=== PATIENT | male | born 1990 | race American Indian/Alaskan Native ===

== ENCOUNTER 2016-12-01 09:54 | Inpatient (IN) ==
[2016-12-01] MEDS ORDERED: diphenhydrAMINE 50 MG/ML VIAL IV ONE (10:17)
[2016-12-01] MEDS ORDERED: KETOROLAC 60 MG/2 ML VIAL IM ONE (10:17)
[2016-12-01] MEDS ORDERED: PROMETHAZINE 50 MG/ML AMPUL IM ONE (10:17)
[2016-12-01] MEDS ORDERED: DEXAMETHASONE 10 MG/ML VIAL IM ONE (10:17)
--- NOTE | 2016-12-01 10:22 | Emergency Department Note ---
Headache HPI - General Chief Complaint: Headache Stated Complaint: headache x2 days Time Seen by Provider: 12/01/16 10:01 Source: patient Mode of arrival: ambulatory Limitations: no limitations - History of Present Illness HPI Narrative: 26-year-old male presents with frontal headache 2 days. He states that this started 2 days ago and has continued to get worse. States his pain is about a 6 out of 10. He is sensitive to light and nauseated but no vomiting. He denies history of migraines. He states it is just bad enough that he can ignore it. He was seen at [facility] today and given a shot of Imitrex. He states that that did not help much. Was about an hour ago when he had the injection. He has a history of A. fib and his last episode was last fall. He takes metoprolol as needed when he is in it. He has not had any episodes recently. His children have been sick but he has not had any cold symptoms. He states his pain is mainly frontal but sometimes he has pain in the back of his head. He has not had an injury. He denies any weakness or focal deficits. He finds it somewhat difficult to think clearly. He states this is the worst headache of his life. He denies family history of aneurysms and thinks his mother may have had migraines. He was referred by [facility] for this Location: Right, Frontal, Temporal Improves with: nothing Worsens with: exertion, light Associated symptoms: Reports: nausea, photophobia - Related Data Home Medications Medication Instructions Recorded Confirmed Metoprolol Tartrate 50 mg PO PRN PRN 05/13/16 12/01/16 Allergies Allergy/AdvReac Type Severity Reaction Status Date / Time amphetamine [From Adderall] Allergy Unknown Palpitation Verified 05/13/16 22:28 s dextroamphetamine Allergy Unknown Palpitation Verified 05/13/16 22:28 [From Adderall] s Review of Systems All systems ED: reviewed and negative except as stated. Headache PMH - Past Medical History Medical history: Reports: atrial fibrillation (paroxysmal) Surgical history ED: Reports: non-contributory Psychiatric history: Reports: ADD Family history: Reports: other (possible migraines on mother's side) - Social History smoking status: Smokeless tobacco Physical Exam - General Limitations: no limitations General appearance: alert, in no apparent distress - Head Head exam: atraumatic - Eye Eye exam: Present: normal appearance, PERRL, EOMI. Absent: conjunctival injection - Neck Neck exam: Present: normal inspection, full ROM, trachea midline. Absent: tenderness, meningismus, lymphadenopathy - Chest Chest inspection: Present: normal inspection, symmetric chest wall rise - Respiratory Respiratory exam: Present: normal lung sounds bilaterally - Cardiovascular Cardiovascular exam: Present: regular rate (a-fib not appreciated at this time, no symptoms), normal heart sounds - Abdominal Exam Abdominal exam: Present: soft, normal bowel sounds. Absent: tenderness - Extremities Exam Extremities exam: Present: normal inspection, full ROM - Neurological Exam Neurological exam: Present: alert, oriented X3, CN II-XII intact, normal gait. Absent: motor sensory deficit - Psychiatric Psychiatric exam: Present: normal affect, normal mood - Skin Skin exam: Present: warm, dry, intact Course Course Narrative: Dr. Smith consulted and will admit for Meningitis Vital Signs Temperature 97.6 F 12/01/16 09:56 Pulse Rate 64 12/01/16 09:56 Respiratory Rate 18 12/01/16 09:56 Blood Pressure 124/81 12/01/16 09:56 Pulse Oximetry (%) 95 12/01/16 09:56 Temperature 96.0 F L 12/01/16 18:01 Pulse Rate 77 12/01/16 17:25 Respiratory Rate 20 12/01/16 18:01 Blood Pressure 118/70 12/01/16 18:01 Pulse Oximetry (%) 97 12/01/16 18:01 Headache - Lab Data Lab results reviewed: Yes I reviewed the patient's lab results. Result diagrams: 12/01/16 14:05 12/01/16 14:05 Lab Results 12/01/16 12/01/16 12/01/16 Range/Units 11:05 11:51 14:05 WBC 6.8 (4.5-11.0) K/mcL RBC 4.92 (4.50-5.90) M/mcL Hgb 15.1 (13.5-16.5) g/dL Hct 44.0 (41.0-55.0) % MCV 89.4 (80.0-100.0) fL MCH 30.7 (26.0-34.0) pg MCHC 34.3 (31.0-36.0) g/dL RDW 11.8 (11.5-14.5) % Plt Count 225 (140-440) K/mcL MPV 8.6 (7.4-10.4) fL Total Counted 100 Seg Neutrophils % 77 (38-78) % Band Neutrophils % Not Reportable Lymphocytes % 21 (15-49) % Monocytes % (Manual) 2 (1-12) % Platelet Estimate Normal (NORMAL) RBC Morphology Normal (NORMAL) Sodium (133-145) mmol/L Potassium (3.3-5.1) mmol/L Chloride (96-108) mmol/L Carbon Dioxide (22-30) mmol/L Anion Gap (8-16) BUN (6-20) mg/dl Creatinine (0.7-1.2) mg/dl GFR Calculation Glucose (70-105) mg/dL Calcium (8.6-10.4) mg/dl Total Bilirubin (0.0-1.0) mg/dL AST (0-37) U/l ALT (0-40) U/l Alkaline Phosphatase (39-117) U/L Total Protein (5.9-8.4) gm/dL Albumin (3.2-5.2) gm/dL Globulin (2.2-3.7) gm/dL Albumin/Globulin Ratio (1.0-2.3) CSF Source Tube #1 Tube #4 CSF Appearance Clear Clear CSF Color Colorless Colorless CSF RBC 2 H 0 (0-1) /cumm CSF Diff Total Count 100 CSF Total Nucleated Auto 187 H 214 H (0-5) /cumm CSF Neutrophils 6 (0-6) % CSF Lymphocytes 53 (40-80) % CSF Reactive Lymphs Not Reportable CSF Monocytes 37 (15-45) % CSF Eosinophils % Not Reportable CSF Basophils 1 % CSF Macrophages 3 % CSF Plasma Cells Not Reportable CSF Diff Comment Not Reportable CSF Glucose 64 (45-75) mg/dL CSF Total Protein 47 H (15.0-45) mg/dL 12/01/16 Range/Units 14:05 WBC (4.5-11.0) K/mcL RBC (4.50-5.90) M/mcL Hgb (13.5-16.5) g/dL Hct (41.0-55.0) % MCV (80.0-100.0) fL MCH (26.0-34.0) pg MCHC (31.0-36.0) g/dL RDW (11.5-14.5) % Plt Count (140-440) K/mcL MPV (7.4-10.4) fL Total Counted Seg Neutrophils % (38-78) % Band Neutrophils % Lymphocytes % (15-49) % Monocytes % (Manual) (1-12) % Platelet Estimate (NORMAL) RBC Morphology (NORMAL) Sodium 138 (133-145) mmol/L Potassium 4.1 (3.3-5.1) mmol/L Chloride 102 (96-108) mmol/L Carbon Dioxide 26 (22-30) mmol/L Anion Gap 10.0 (8-16) BUN 8 (6-20) mg/dl Creatinine 1.0 (0.7-1.2) mg/dl GFR Calculation 103 Glucose 118 H (70-105) mg/dL Calcium 9.2 (8.6-10.4) mg/dl Total Bilirubin 0.4 (0.0-1.0) mg/dL AST 16 (0-37) U/l ALT 30 (0-40) U/l Alkaline Phosphatase 61 (39-117) U/L Total Protein 7.1 (5.9-8.4) gm/dL Albumin 4.6 (3.2-5.2) gm/dL Globulin 2.5 (2.2-3.7) gm/dL Albumin/Globulin Ratio 1.8 (1.0-2.3) CSF Source CSF Appearance CSF Color CSF RBC (0-1) /cumm CSF Diff Total Count CSF Total Nucleated Auto (0-5) /cumm CSF Neutrophils (0-6) % CSF Lymphocytes (40-80) % CSF Reactive Lymphs CSF Monocytes (15-45) % CSF Eosinophils % CSF Basophils % CSF Macrophages % CSF Plasma Cells CSF Diff Comment CSF Glucose (45-75) mg/dL CSF Total Protein (15.0-45) mg/dL - Radiology Data Radiology results reviewed: Yes I reviewed the patient's radiology results. Negative CT scan Disposition Pt seen by MANAGER FOREIGN/PA only: No Clinical Impression: Meningitis Disposition: Xfer As Inpt ([facility]) Condition: Fair
--- NOTE | 2016-12-01 10:54 | Cat Scan Report ---
CLINICAL INFORMATION: Severe headache COMPARISON: None. TECHNIQUE: Axial noncontrast-enhanced images through the brain. FINDINGS: No acute intracranial hemorrhage. No subdural hematoma. No subarachnoid hemorrhage. No intra-axial hematoma. No focal attenuation abnormality or localized mass effect. No midline shift. No hydrocephalus. Basilar cisterns are normal. Brainstem and cerebellum are negative. No calvarial fracture. Skull base is negative. Paranasal sinuses are negative IMPRESSION: Negative noncontrast enhanced brain CT scan Interpreted and Authenticated by: Shayan Robles 12/01/16
[2016-12-01 12:54] LABS: Glucose,CSF 64 mg/dL (45-75)
[2016-12-01 13:27] LABS: Appearance,CSF CLEAR; Nucleated Cells,CSF 187 /cumm (0-5); Red Blood Cell,CSF 2 /cumm (0-1)
[2016-12-01 13:27] LABS: Appearance,CSF CLEAR; Nucleated Cells,CSF 214 /cumm (0-5); Red Blood Cell,CSF 0 /cumm (0-1)
[2016-12-01 13:30] LABS: Basophils,CSF 1 %; Lymphocytes,CSF 53 % (40-80); Monocytes,CSF 37 % (15-45); Neutrophils,CSF 6 % (0-6); Total Cell Ct,CSF 100
[2016-12-01 14:34] LABS: Mean Cell Volume 89.4 fL (80.0-100.0); Mean Corpuscular HGB Conc 34.3 g/dL (31.0-36.0); Mean Corpuscular Hemoglobin 30.7 pg (26.0-34.0); RBC 4.92 M/mcL (4.50-5.90)
[2016-12-01 14:35] LABS: Platelet Count 225 K/mcL (140-440); Red Cell Distribution Width 11.8 % (11.5-14.5)
[2016-12-01 14:52] LABS: ALT/SGPT 30 U/l (0-40); Albumin 4.6 gm/dL (3.2-5.2); Albumin/Globulin Ratio 1.8 (1.0-2.3); Alkaline Phosphatase 61 U/L (39-117); Blood Urea Nitrogen 8 mg/dl (6-20)
[2016-12-01 15:11] LABS: Lymphocytes % 21 % (15-49); Monocytes % (Manual) 2 % (1-12); Platelet Estimate NORMAL (NORMAL); RBC Morphology NORMAL (NORMAL); Segmented Neutrophils % 77 % (38-78)
--- NOTE | 2016-12-01 15:42 | XRay Report ---
CLINICAL INFORMATION: Severe headache with negative CT scan COMPARISON: CT scan of the head dated 12/01/2016 FINDINGS: Informed consent was obtained. Routine chloro prep skin cleansing. 1% lidocaine injected. 22-gauge spinal needle was placed within the thecal sac at the L2-L3 level. Fluoroscopic guidance utilized. 6 mL clear CSF collected. IMPRESSION: Fluoroscopic-guided lumbar puncture Interpreted and Authenticated by: Shayan Robles 12/01/16
[2016-12-01] MEDS ORDERED: VANCOMYCIN 1,000 MG in 0.9 % SODIUM CHLORIDE 250 ML IV ONE (15:56)
[2016-12-01] MEDS ORDERED: cefTRIAXone 2 GM in DEXTROSE 5% IN WATER 50 ML IV ONE (15:56)
--- NOTE | 2016-12-01 17:11 | Internal Med History&Physical ---
Medical - H&P: HPI Patient information: Note initiated : 12/01/16 at 5:07 pm Service Date, if different from initiated Date: [] Patient: Manjit Gonzalez a 26 y/o M admitted on for headache x2 days. Chief Complaint: [] History of present illness: Mr. 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 He notes that monday night he had a slight headache, but woke up on monday with a very bad headache. He took some OTC meds with no relief, even some oxycodone he had from previous hernia surgery with no improvement. His headache continued to get worse , severe in nature, throbbing sharp, worse with sound, light better with rest. NO nausea or vomiting. His headache kept getting worse, and he was seen at an outside facility today. over there he was given Imitrex to see if he would respond to same. The patient did not respond to Imitrex and therefore he was sent to [facility] for further evaluation. in the emergency room patient's lab work was unremarkable he was afebrile with stable vitals, a head CT was done which was reported as negative. He underwent a lumbar puncture which shows elevated neutrophils, borderline controlled glucose mildly elevated proteins. His CSF smearshows moderate mononuclear WBCs , no obvious organism. The patient was admitted to the hospital for further management. the patient denies any recent high-risk activity, he admits to being bitten by mosquitoes, no recent camping, no recent viral illness. Review of systems: CONSTITUTIONAL: No weight loss, fever, chills, weakness or fatigue. HEENT: Eyes: No visual loss, blurred vision, double vision or yellow sclerae Present photophobia . Ears, Nose, Throat: No hearing loss, sneezing, congestion , runny nose or sore throat. Prsent phonophobia. SKIN: No rash or itching. CARDIOVASCULAR: No chest pain, chest pressure or chest discomfort. No palpitations or edema. RESPIRATORY: No shortness of breath, cough or sputum. GASTROINTESTINAL: No nausea, vomiting or diarrhea or constipation. No abdominal pain or blood in stools No Shweta. GENITOURINARY: Denies Burning on urination. Blood in urine, or foul smelling urine NEUROLOGICAL: Present headache, dizziness, NO syncope, paralysis, tremors, numbness or tingling in the extremities. No change in bowel or bladder control. MUSCULOSKELETAL: No muscle, back pain, joint pain or stiffness. HEMATOLOGIC: No bleeding or bruising. No enlarged nodes PSYCHIATRIC: No depression or anxiety. ENDOCRINOLOGIC: No reports of sweating, cold or heat intolerance. No polyuria or polydipsia. ALLERGIES: No hives, eczema or rhinitis. Skin: No rash, no jaundice, cyanosis or pallor. Medical - H&P: PMH Medical history: afib Surgical history: hernia surgery Family history: reviewed and not pertinent Social history: lives with single partner tobacco chewer social etoh no IV drug Medical - H&P: Meds Home Medications Medication Instructions Recorded Confirmed Type Metoprolol Tartrate 50 mg PO PRN PRN 05/13/16 12/01/16 History Allergies Allergy/AdvReac Type Severity Reaction Status Date / Time amphetamine [From Adderall] Allergy Unknown Palpitation Verified 05/13/16 22:28 s dextroamphetamine Allergy Unknown Palpitation Verified 05/13/16 22:28 [From Adderall] s Medical - H&P: Exam - Constitutional Vitals: Temp Pulse Resp BP Pulse Ox 97.6 F 62 18 132/71 98 12/01/16 09:56 12/01/16 15:50 12/01/16 14:51 12/01/16 15:50 12/01/16 15:50 Exam: GENERAL: The patient is a well-developed, well-nourished in no apparent distress. Is alert and oriented x3. VITAL SIGNS: Reviewed and as noted elsewhere. HEENT: Head is normocephalic and atraumatic. Extraocular muscles are intact. Pupils are equal, round, and reactive to light. Nares appeared normal. Mouth appears any without lesions. Mucous membranes are moist. NECK: Normal to inspection, Supple, No lymphadenopathy or thyromegaly. LUNGS: Air entry equal on both sides, no wheezing, crackles or rhonchi noted. No accessory muscles of respiration HEART: Regular rate and rhythm normal, S1 and S2 heard, no Gallop, S3 or Rub Noted, No Gross murmur heard. ABDOMEN: Soft, nontender, and nondistended. Positive bowel sounds. No hepatosplenomegaly was noted. EXTREMITIES: No cyanosis, clubbing, rash, lesions or edema. NEUROLOGIC: Cranial nerves II through XII are grossly intact. Motor and Sensory System Grossly Intact PSYCHIATRIC: Normal affect, Normal Mood. Appropriate Behavior. SKIN: No ulceration or wounds noted, No jaundice, No rash noted. Medical - H&P: Reslt - Labs CBC & Chem 7: 12/01/16 14:05 12/01/16 14:05 Labs: Short CBC 12/01/16 Range/Units 14:05 WBC 6.8 (4.5-11.0) K/mcL Hgb 15.1 (13.5-16.5) g/dL Hct 44.0 (41.0-55.0) % Plt Count 225 (140-440) K/mcL BMP 12/01/16 14:05 Sodium 138 Potassium 4.1 Chloride 102 Carbon Dioxide 26 BUN 8 Creatinine 1.0 Glucose 118 H Calcium 9.2 Liver Function 12/01/16 Range/Units 14:05 Total Bilirubin 0.4 (0.0-1.0) mg/dL AST 16 (0-37) U/l ALT 30 (0-40) U/l Alkaline Phosphatase 61 (39-117) U/L Albumin 4.6 (3.2-5.2) gm/dL Medical - H&P: A/P - Narrative A/P Narrative: a/p Meningitis : Likely viral, due to enterovirus, but will cover with abx till cultures are negative, he has mildly elevated prot, glucose at 65, elevated neucleated cells, will admit the patient till csf cx is neg, IV dexa, IV rocephin and vanco for now. send lyme titer, [place], hsv pcr if sample available. Check for HIV DVT scd Diet regular Full code.
[2016-12-01] MEDS ORDERED: VANCOMYCIN PER PHARMACY IV SCH (17:32)
[2016-12-01] MEDS ORDERED: ONDANSETRON 4 MG/2 ML VIAL IV PRN (17:32)
[2016-12-01] MEDS ORDERED: oxyCODONE HCL 5 MG TABLET PO PRN (17:32)
[2016-12-01] MEDS ORDERED: NALOXONE HCL 0.4 MG/ML VIAL IV PRN (17:32)
[2016-12-01] MEDS: cefTRIAXone 2 GM in DEXTROSE 5% IN WATER 50 ML IV SCH (17:34)
[2016-12-01] MEDS: 0.9 % SODIUM CHLORIDE 1,000 ML IV SCH (19:42)
[2016-12-01] MEDS: DEXAMETHASONE 10 MG/ML VIAL IV SCH (19:43)
[2016-12-01] MEDS: VANCOMYCIN 1,500 MG in 0.9 % SODIUM CHLORIDE 500 ML IV SCH (19:47)
[2016-12-01] MEDS: 0.9 % SODIUM CHLORIDE 10 ML SYRINGE IV SCH (22:49)
[2016-12-01] MEDS: FAMOTIDINE 20 MG TABLET PO SCH (23:38)
[2016-12-02] MEDS: DEXAMETHASONE 10 MG/ML VIAL IV SCH ×4 (00:19→18:43)
[2016-12-02] MEDS: 0.9 % SODIUM CHLORIDE 10 ML SYRINGE IV SCH ×3 (05:40→21:07)
[2016-12-02 06:27] LABS: Basophils # (Auto) 0 K/mcL (0.0-0.3); Basophils % (Auto) 0.1 % (0.0-2.0); Eosinophils # (Auto) 0 K/mcL (0.0-0.7); Eosinophils % (Auto) 0 % (0.0-7.0); Granulocytes % (Auto) 87.1 % (38.0-78.0); Lymphocytes # (Auto) 0.9 K/mcL (1.5-4.8); Lymphocytes % (Auto) 11.3 % (15.5-49.0); Mean Cell Volume 90.7 fL (80.0-100.0); Mean Corpuscular Hemoglobin 30.8 pg (26.0-34.0); Monocytes # (Auto) 0.1 K/mcL (0.1-0.9); Monocytes % (Auto) 1.5 % (1.0-12.0); Platelet Count 218 K/mcL (140-440); RBC 4.68 M/mcL (4.50-5.90); Red Cell Distribution Width 12.3 % (11.5-14.5)
[2016-12-02] MEDS: cefTRIAXone 2 GM in DEXTROSE 5% IN WATER 50 ML IV SCH ×3 (06:43→20:00)
[2016-12-02 06:55] LABS: ALT/SGPT 24 U/l (0-40); Albumin/Globulin Ratio 1.7 (1.0-2.3); Alkaline Phosphatase 54 U/L (39-117); Bilirubin,Direct < 0.2 mg/dL (0.0-0.3); Blood Urea Nitrogen 12 mg/dl (6-20); Gamma Glutamyl Transpeptidase 21 U/L (8-61); Magnesium 2.1 mg/dL (1.6-2.5); Uric Acid 5.2 mg/dL (2.5-8.0)
--- NOTE | 2016-12-02 08:29 | Emergency Department Note ---
ED Note Addendum Note Addendum: I saw this patient in conjunction with Kat Mujica PA-C. In particular discussed the need for lumbar puncture and CSF results. When I interviewed and examined the patient reported his headache had responded to treatment. However it does look like he has meningitis, likely viral but bacterial cannot be ruled out except with culture. I discussed the case with Dr. Smith the hospitalist who agreed to accept patient further treatment and evaluation. Antibiotics were started in the ER
[2016-12-02] MEDS: FAMOTIDINE 20 MG TABLET PO SCH ×2 (08:54→19:51)
[2016-12-02] MEDS: 0.9 % SODIUM CHLORIDE 1,000 ML IV SCH ×3 (09:00→17:30)
[2016-12-02] MEDS: VANCOMYCIN 1,500 MG in 0.9 % SODIUM CHLORIDE 500 ML IV SCH ×2 (09:01→21:18)
--- NOTE | 2016-12-02 11:50 | Internal Med Progress Note ---
Medical - PN: Subj Patient information: Note initiated : 12/02/16 at 11:48 am Service Date, if different from initiated Date: [] Patient: Manjit Gonzalez a 26 y/o M admitted on 12/01/16 for Headache x 2 Days/ Meningitis. Chief Complaint: [] Interval history: Mr. 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 He notes that monday night he had a slight headache, but woke up on monday with a very bad headache. He took some OTC meds with no relief, even some oxycodone he had from previous hernia surgery with no improvement. His headache continued to get worse , severe in nature, throbbing sharp, worse with sound, light better with rest. NO nausea or vomiting. His headache kept getting worse, and he was seen at an outside facility today. over there he was given Imitrex to see if he would respond to same. The patient did not respond to Imitrex and therefore he was sent to [facility] for further evaluation. in the emergency room patient's lab work was unremarkable he was afebrile with stable vitals, a head CT was done which was reported as negative. He underwent a lumbar puncture which shows elevated neutrophils, borderline controlled glucose mildly elevated proteins. His CSF smearshows moderate mononuclear WBCs , no obvious organism. The patient was admitted to the hospital for further management. the patient denies any recent high-risk activity, he admits to being bitten by mosquitoes, no recent camping, no recent viral illness. 12/02: patient seen and examined no acute complaints. He admits that his headache is much better today. He was walking around in his room. Photophobia phonophobia much better. Denies any chest pain shortness of breath palpitations or any GI symptoms. Labs unremarkable, CSF culture pending plan of care discussed with the patient. Pertinent ROS: Denies headache, dizziness (headache much better) Denies chest pain, palpitations Denies cough or shortness of breath Denies abdominal pain, nausea or vomiting. - Constitutional Vitals: Vital Signs Temp Pulse Resp BP Pulse Ox 95.4 F L 76 16 127/63 96 12/02/16 11:38 12/02/16 04:00 12/02/16 11:38 12/02/16 11:38 12/02/16 11:38 Period Temp Pulse Resp BP Sys/Arellano Pulse Ox Last 24 Hr 95.4 F-98.4 F 64-80 16-20 118-130/61-72 95-97 Intake and Output 12/01/16 12/02/16 12/02/16 21:59 05:59 13:59 Intake Total 1500 / 1500 1640 / 1640 Balance 1500 / 1500 1640 / 1640 Weight 286 lb Intake & Output: Intake & Output 12/01/16 12/02/16 12/02/16 21:59 05:59 13:59 Intake Total 1500 / 1500 1640 / 1640 Balance 1500 / 1500 1640 / 1640 Weight 286 lb Intake: IV 500 / 500 Vancomycin 1,500 mg In 500 / 500 Sodium Chloride 0.9% 500 ml @ 333.3 mls/hr IV Q12H [facility] Rx#:[id number] Oral 1000 / 1000 1640 / 1640 Other: Meal Breakfast Percent of Meal Consumed 100% Feeding Ability Independent # Voids 2 1 Exam: Constitutional; Afebrile, cooperative, alert, not in distress. Eyes- No icterus, , No periorbital swelling Ears- Ext ear normal, hearing normal to conversation. Neck- Midline trachea, supple Respiratory system: Air Entry equal on both sides, No crackles or wheezing, no rhonchi. CVS- Rate rhythm regular, S1,S2 heard, no gallop, no rub. Abdomen- Soft nontender abdomen, no organomegaly, no tenderness, no guarding or rigidity, SHIP JOINER- AOOx3, moving all extremities, no gross focal deficit noted. Medical - PN: Obj Da - Labs CBC & Chem 7: 12/02/16 04:29 12/02/16 04:29 Labs: Abnormal Lab Results 12/02/16 12/02/16 04:29 04:29 Gran % 87.1 H Lymph % (Auto) 11.3 L Lymph # (Auto) 0.9 L Glucose 165 H Meds: Medications Acetaminophen (Tylenol) 650 mg PO Q6HP PRN PRN Reason: PAIN/FEVER > 101 Dexamethasone (Decadron) 10 mg IV Q6 [facility] Last Admin: 12/02/16 05:36 Dose: 10 mg Famotidine (Pepcid) 20 mg PO BID [facility] Last Admin: 12/02/16 08:54 Dose: 20 mg Sodium Chloride (Sodium Chloride 0.9%) 1,000 mls @ 84 mls/hr IV .[id number] [facility] Last Admin: 12/02/16 09:00 Dose: Not Given Ceftriaxone Sodium 2 gm/ (Dextrose) 50 mls @ 100 mls/hr IV Q12H [facility] Last Admin: 12/02/16 06:43 Dose: 100 mls/hr Vancomycin HCl 1,500 mg/ (Sodium Chloride) 500 mls @ 333.3 mls/hr IV Q12H [facility] Last Admin: 12/02/16 09:01 Dose: 250 mls/hr Naloxone HCl (Narcan) 0.1 mg IV Q2MIN PRN PRN Reason: Opiate Reversal Ondansetron HCl (Zofran) 4 mg IV Q6HP PRN PRN Reason: Nausea And Vomiting Oxycodone HCl (Roxicodone) 5 mg PO Q4HP PRN PRN Reason: Pain Last Admin: 12/01/16 20:32 Dose: 5 mg Sodium Chloride (Saline Flush) 10 ml IV Q8 [facility] Last Admin: 12/02/16 05:40 Dose: Not Given Vancomycin HCl (Vancomycin Per Pharmacy) 1 order IV UD [facility] Medical - PN: A/P - Time Spent With Patient Total time spent is greater than 50% in coordination of care (as documented) at patient's floor/unit and/or counseling patient: - Narrative A/P Narrative: a/p Meningitis: likely viral meningitis, patient responding very well to treatment, currently on vancomycin and Rocephin which will continue. Await microbiology, if negative can be discontinued. Labs unremarkable. Can be DC'd home tomorrow if 48-hour CSF cultures negative. regular diet compression device for DVT prophylaxis patient WE next full code Medical - PN: Qual - VTE Deep Vein Thrombosis/Pulmonary Embolism Present on Admission: No
[2016-12-02] MEDS: ACETAMINOPHEN 325 MG TABLET PO PRN ×2 (12:44→18:44)
[2016-12-03] MEDS: DEXAMETHASONE 10 MG/ML VIAL IV SCH ×3 (00:38→14:13)
[2016-12-03] MEDS: ACETAMINOPHEN 325 MG TABLET PO PRN (00:43)
[2016-12-03] MEDS: 0.9 % SODIUM CHLORIDE 1,000 ML IV SCH (04:05)
[2016-12-03] MEDS: 0.9 % SODIUM CHLORIDE 10 ML SYRINGE IV SCH (06:36)
[2016-12-03 06:38] LABS: Basophils # (Auto) 0 K/mcL (0.0-0.3); Basophils % (Auto) 0 % (0.0-2.0); Eosinophils # (Auto) 0 K/mcL (0.0-0.7); Eosinophils % (Auto) 0 % (0.0-7.0); Granulocytes % (Auto) 90.3 % (38.0-78.0); Lymphocytes # (Auto) 0.9 K/mcL (1.5-4.8); Lymphocytes % (Auto) 7.4 % (15.5-49.0); Mean Cell Volume 90.5 fL (80.0-100.0); Mean Corpuscular Hemoglobin 30.8 pg (26.0-34.0); Monocytes # (Auto) 0.3 K/mcL (0.1-0.9); Monocytes % (Auto) 2.3 % (1.0-12.0); Platelet Count 218 K/mcL (140-440); RBC 4.65 M/mcL (4.50-5.90); Red Cell Distribution Width 12.4 % (11.5-14.5)
[2016-12-03 06:39] LABS: ALT/SGPT 21 U/l (0-40); Alkaline Phosphatase 52 U/L (39-117); Bilirubin,Direct < 0.2 mg/dL (0.0-0.3); Blood Urea Nitrogen 12 mg/dl (6-20); Gamma Glutamyl Transpeptidase 19 U/L (8-61); Magnesium 2.1 mg/dL (1.6-2.5); Uric Acid 3.9 mg/dL (2.5-8.0)
[2016-12-03] MEDS: cefTRIAXone 2 GM in DEXTROSE 5% IN WATER 50 ML IV SCH (09:34)
[2016-12-03] MEDS: VANCOMYCIN 2,000 MG in 0.9 % SODIUM CHLORIDE 500 ML IV SCH ×2 (10:50→11:04)
--- NOTE | 2016-12-03 11:03 | Discharge Summary ---
Medical - DS: Prov Patient information: Note initiated : 12/03/16 at 11:01 am Service Date, if different from initiated Date: [] Patient: Manjit Gonzalez a 26 y/o M admitted on 12/01/16 for Headache x 2 Days/ Meningitis. Chief Complaint: GUADALUPE, photophobia Date of admission: 12/01/16 17:31 Discharge date: 12/03/16 Primary care physician: Ally Troy Admitting clinician: Masha Smith Discharging clinician: Meri Pitt Medical - DS: Meds - Discharge Medications Active and Home Medications: Home Medications Metoprolol Tartrate 50 mg PO PRN PRN 05/13/16 [History Confirmed 12/01/16 Last Taken 05/13/16 11:00] Medical - DS: Hosp Hospital course: Mr. Gonzalez is a 26 year old Male with h/o afib in the past presented to the ER with complaints of headache, photophobia and phonophobia x 2 days. The patient works in the transport of prisoners. He reported that Monday one person had vomited and he had to clean up after that; this is his only known sick exposure. Prior to admission, he was seen at an outside facility and was given Imitrex to see if he would respond to same. The patient did not respond to Imitrex and therefore he was sent to [facility] for further evaluation. In the emergency room patient's lab work was unremarkable he was afebrile with stable vitals, a head CT was done which was negative. He underwent a lumbar puncture which shows elevated neutrophils, borderline controlled glucose mildly elevated proteins. His CSF smear shows moderate mononuclear WBCs, no obvious organism. The patient was admitted to the hospital for further management. The patient denies any recent high-risk activity, he admits to being bitten by mosquitoes, no recent camping, no recent viral illness. He was empirically treated with dexamethasone, vancomycin and high dose Rocephin. His cultures were negative after 48 hours and it is felt he has a viral meningitis and will continue to improve with symptomatic treatment. This was explained to patient and all questions were answered. Discharge diagnosis: viral meningitis - Time Spent with Patient Total time spent providing and/or coordinating discharge services: Greater than 30 minutes Medical - DS: Exam - Constitutional Vitals: Vital Signs Temp Pulse Resp BP BP Pulse Ox 12/03/16 07:34 96.8 F L 16 123/62 96 12/03/16 04:00 96.4 F L 60 18 118/62 95 12/02/16 23:51 96.8 F L 66 16 118/64 96 12/02/16 20:00 97.5 F 68 18 128/68 95 12/02/16 16:00 97.2 F 16 122/68 97 12/02/16 11:38 95.4 F L 16 127/63 96 Intake and Output 12/02/16 12/03/16 12/03/16 21:59 05:59 13:59 Intake Total 2550 / 2550 1675 / 1675 Balance 2550 / 2550 1675 / 1675 Intake: IV 50 / 50 875 / 875 Sodium Chloride 0.9% 1, 875 / 875 000 ml @ 84 mls/hr IV . [id number] [facility]NA Rx#:[id number] Rocephin 2 gm In Dextrose 50 / 50 5% in Water 50 ml @ 100 mls/hr IV Q12H [facility]NA Rx#: [id number] Oral 2500 / 2500 800 / 800 Other: Meal Dinner Percent of Meal Consumed 100% # Voids 2 Weight 293 lb 8 oz - Head Head exam: Present: atraumatic, normal inspection, normocephalic - Eye Eye exam: Present: PERRL. Absent: scleral icterus Additional comments: Occasional lazy eye on the left--at baseline per pt - Respiratory Respiratory exam: Present: normal respiratory exam, CTAB - Cardiovascular Cardiovascular exam: Present: normal rate and rhythm. Absent: rubs, systolic murmur - GI/Abdominal GI/Abdominal exam: Present: normal bowel sounds, soft. Absent: tenderness - Extremities Exam Extremities exam: Present: normal inspection. Absent: pedal edema - Neurological Exam Neurological exam: Present: alert, CN II-XII intact, oriented X3. Absent: motor sensory deficit - Psychiatric Psychiatric exam: Present: normal affect, normal mood - Skin Skin exam: Present: dry, warm Medical - DS: Data Labs on day of discharge: Labs from last 24 hours 12/03/16 12/03/16 12/03/16 07:55 05:05 05:05 WBC 12.6 H RBC 4.65 Hgb 14.3 Hct 42.1 MCV 90.5 MCH 30.8 MCHC 34.0 RDW 12.4 Plt Count 218 MPV 9.3 Gran % 90.3 H Lymph % (Auto) 7.4 L Charles % (Auto) 2.3 Eos % (Auto) 0 Baso % (Auto) 0 Gran # 11.3 H Lymph # (Auto) 0.9 L Charles # (Auto) 0.3 Eos # (Auto) 0 Baso # (Auto) 0 Sodium 141 Potassium 3.9 Chloride 105 Carbon Dioxide 24 Anion Gap 12.0 BUN 12 Creatinine 0.8 GFR Calculation 123 Glucose 143 H Uric Acid 3.9 Calcium 8.7 Phosphorus 3.2 Magnesium 2.1 Total Bilirubin 0.2 Direct Bilirubin < 0.2 GGT 19 AST 10 ALT 21 Alkaline Phosphatase 52 Lactate Dehydrogenase 135 Total Protein 6.0 Albumin 4.0 Globulin 2.0 L Albumin/Globulin Ratio 2.0 Triglycerides 38 Vancomycin Trough 6.8 Medical - DS: A/P - Patient/Caregiver Discharge Instructions Activity: increase activity as tolerated Diet: Regular Diet - Follow up Plan Follow up with: Ally Troy ARNP [Primary Care Provider] - (Call on Monday for an appointment in 7-10 days.) Disposition: Home, Self-Care Prognosis: Good Rehab Potential: Good I certify that the patient requires SNF services: No Overall status at discharge: patient is progressing back to baseline Medical - DS: Qual - VTE Deep Vein Thrombosis/Pulmonary Embolism Present on Admission: No
[2016-12-03] MEDS: FAMOTIDINE 20 MG TABLET PO SCH (11:04)
[2016-12-03] MEDS: VANCOMYCIN 1,500 MG in 0.9 % SODIUM CHLORIDE 500 ML IV SCH (11:07)
== END 2016-12-03 15:20 | disposition home or self-care (01) | DRG 76 ==
LOC: MEDSUR 09:54 → ED 09:54 → MEDSUR 17:30 → UNDODISIN 12-03 15:20
PROVIDERS: ADMIT Internal Medicine; ATTEND Internal Medicine